=== PATIENT | male | born 1975 | race Caucasian/White ===

== ENCOUNTER 2024-07-11 10:36 | Emergency (ER) | payer SELFPAY ==
[2024-07-11 10:37] VITALS: BP 162/113; PULSE 79; RESP 18; TEMP 36.3; O2SAT 99; BMI 27.6
[2024-07-11 10:55] VITALS: BP 168/112; PULSE 74; RESP 16; TEMP 36.6; O2SAT 100
--- NOTE | 2024-07-11 10:57 | EDS_ITS ---
HPI History of Present Illness Chief Complaint: Hypertension Detail of Chief Complaint: Acute on chronic elevated blood pressure. Informant: patient Onset/Context/Timing Onset: Days Context: Gradual Onset Timing: Intermittent Current Severity: Mild Maximum Severity: Mild Narrative Narrative: 41-year-old male history of hypertension has been treated with medications for that for the last 5 years. Currently he is on clonidine twice daily and losartan once a day. He said recently he was out of his losartan but he got it refilled and to start taking it the last couple of days again. He quit smoking about 3 weeks ago. Denies any symptoms no severe headache. No chest pain. Said otherwise is feeling fine but when his pressure today was 185/102 at home he thought he should come and be evaluated. Prior similar symptoms: Yes Recent Illness/Hospitalization: No PFSH PFSH Allergy/AdvReac Type Severity Reaction Status Date / Time azithromycin Allergy Severe Other Verified 07/11/24 10:41 Social History Smoking Status: Former smoker ROS ROS ED ROS Narrative Denies recent illness. Denies headache or chest pain. Review of Systems ROS Unobtainable: Denies due to encephalopathy Constitutional Constitutional ED: Denies chills or fever(s) Eyes Eyes: Denies blurry vision ENT ENT ED: Denies ear pain Cardiovascular Cardiovascular: Denies chest pain Respiratory/Chest Respiratory/Chest: Denies cough or dyspnea Gastrointestinal Gastrointestinal: Denies abdominal pain Genitourinary Genitourinary ED: Denies dysuria Musculoskeletal Musculoskeletal: Denies arthralgias Integumentary Denies abscess Neurologic Neurologic: Denies headache(s) Psychiatric Psychiatric: Denies anxiety Endocrine Endocrinology: Denies cold intolerance Hematologic/Lymphatic Hematologic/Lymphatic: Reports none Allergic/Immunologic Allergic/Immunologic ED: Denies mouth swelling, tongue swelling or urticaria EXAM Physical Exam Narrative Exam Narrative: Well-appearing 49-year-old male. Vital signs stable afebrile. Blood pressure elevated 162/113. He is in no distress. No complaints. H EENT exam unremarkable. Pupils round reactive light. Extra motions are intact. No facial droop. Normal speech. Lungs clear equal and symmetrical bilaterally. Heart regular rhythm rate about 75 no murmur. Chest wall ribs nontender. Abdomen soft nontender. Moving all 4 extremities. 5 out of 5 interim controller strength. Dorsi plantarflexion intact. Nontender no edema. Neurologic exam normal. NIH 0. Const Vital Signs: 07/11/24 10:37 07/11/24 10:37 07/11/24 10:55 Temperature 97.3 F L 97.9 F Temperature Source Temporal Pulse Rate 79 74 Respiratory Rate 18 16 Respiratory Effort Normal Non-Labored Respiratory Pattern Normal Blood Pressure 162/113 H 168/112 H Blood Pressure Mean 129 130 Pulse Ox 99 100 Oxygen Delivery Method Room Air Positive well nourished and well developed; Negative for obese, cachectic, contractures or unkempt General Appearance ED: well developed and NAD; Negative for unkempt, cachectic, contractures, cyanotic, diaphoretic or pallor Nutritional Appearance: Negative for cachectic or obese HEENT Reports moist mucous membranes Negative for trauma Eyes PERRL and EOMs intact bilaterally General Eye ED: Negative for pale conjunctiva Neck no lymphadenopathy, supple and no JVD General: Negative for tenderness Chest Wall inspection of chest normal and palpation of chest normal Chest: Negative for other Resp normal respiratory effort and clear to auscultation bilaterally Effort and Inspection: Negative for retractions Auscultation: Negative for rales, rhonchi, wheezes or diminished lung sounds Cardio regular rate, regular rhythm, S1 normal heart sound, S2 normal heart sound and no murmurs Palpation: Negative for palpable S3 or palpable S4 Rate: Negative for bradycardia or tachycardic Rhythm: Negative for abnormal rhythm GI normal to inspection, nondistended, normoactive bowel sounds, non-tender, non- distended and no masses Palpation: soft; Negative for tender Back/Spine no CVA tenderness Extremity normal to inspection General Extremety ED: Negative for edema or tenderness General Extremity: Negative for edema Neuro oriented x3 and CN's II-XII intact bilaterally Sensorium / Orientation: alert; Negative for orientation impaired Motor Exam: strength 5/5 throughout; Negative for general weakness or strength abnormal Psych mental status grossly normal Appearance: Negative for unkempt Attitude: No agitated Mood & Affect: Negative for depressed, anxious or tearful Skin no rashes or lesions noted, no wounds and skin turgor normal General Skin Exam: Negative for jaundice or pallor Lesions: No lesion noted Rashes: No rashes noted MDM MDM MDM Narrative Medical decision making narrative: 49-year-old male acute on chronic hypertension. Normal exam. Recently was out of one of his 2 blood pressure medications which she is just restarted and had refilled. Will continue his normal blood pressure medication dosages and taking them as prescribed. He will log his blood pressure twice daily and follow-up with his primary care physician to see if they need to adjust his meds at all. Currently he is having no symptoms with a normal exam he does not need any other evaluation. Discharge Plan Triage Chief Complaint: Hypertension ED Provider: Leonard Warren Dx/Rx/DC Orders Clinical Impression: Hypertension Instructions: ED Hypertension, Established Activity Restrictions/Additional Instructions: Blood pressure is elevated today. We do not need to acutely lower than it. Log your blood pressures twice daily for the next week. Follow-up your primary care physician. Show them your blood pressure readings and they can decide if they need to adjust your medication. If your pressure consistently is running over 200 or you develop a severe headache or chest pain obviously we are happy to reevaluate you. At this time there is nothing we need to do. Take your blood pressure medications as prescribed. Print Language: [place] Citizen Disposition Disposition: Home, Self Care
== END 2024-07-11 11:27 | disposition home or self-care (01) ==
LOC: ED 11:25
PROVIDERS: Emergency Provider Emergency Medicine; Referring Provider Emergency Medicine; Visit Provider Emergency Medicine
DX: I10 Essential (primary) hypertension (principal); Z87.891 Personal history of nicotine dependence; Z79.899 Other long term (current) drug therapy
CPT/HCPCS: 99282